=== PATIENT | female | born 1980 | race African-American/Black ===

== ENCOUNTER 2016-10-18 08:26 | Emergency (ER) | payer OTHER ==
[~2016-10-18 08:26] MED LIST: NAP500 PO
== END 2016-10-18 08:33 | disposition home or self-care (01) ==
LOC: ER 08:26
DX: M25.512 Pain in left shoulder (principal); F17.200 Nicotine dependence, unspecified, uncomplicated; Z79.899 Other long term (current) drug therapy
CPT/HCPCS: 71020; 73030-LT; 93005; 96372; 99285; J1885